=== PATIENT | female | born 1965 | race Caucasian/White ===

== ENCOUNTER 2016-10-31 20:39 | Emergency (ER) | payer OTHER ==
[~2016-10-31] VITALS: Ht 167.6 cm; Wt 77.1 kg
[~2016-10-31 20:39] MED LIST: ANTIVERT 25 MG25 M1 PO; COMPAZINE5 MG PR; GOOD SENSE IBU200 MG PO; HYDRODIURIL 2525 MG PO; VENLAFAXINE HY150 MG PO; VENLAFAXINE HYD75 M1 PO
--- NOTE | 2016-10-31 22:07 | ED GI/GU/ABDOMINAL COMPLAINT ---
History of Present Illness General Chief Complaint: Nausea, Vomiting, Diarrhea Stated Complaint: +NVD Source: patient Exam Limitations: no limitations Allergies Coded Allergies: sumatriptan (From Imitrex) (Severe, ANAPHYLAXIS 10/31/16) Sulfa (Sulfonamide Antibiotics) (Intermediate, RASH 10/31/16) vancomycin (UNKNOWN 10/31/16) erythromycin base (Severe, SEVER STOMACH PAIN 10/31/16) Reconcile Medications Hydrochlorothiazide (Hydrodiuril 25 MG Tab) 25 MG TAB 1 TAB PO BID MEINIERS ( Reported) Ibuprofen 200 MG TAB 600 MG PO PRN PAIN (Reported) Meclizine (Antivert) 25 MG TAB 1 TAB PO TID PRN DIZZINESS Ondansetron (Zofran Odt) 4 MG TAB.RAPDIS 1 TAB SL TID PRN NAUSEA Prochlorperazine (Compazine) 5 MG SUP 1 TAB [place] Q6 PRN NAUSEA VENLAFAXINE HCL (Venlafaxine HCl ER) 150 MG CER 1 CAP PO DAILY MENTAL HEALTH (Reported) VENLAFAXINE HCL (Venlafaxine HCl ER) 75 MG CER 1 CAP PO DAILY MENTAL HEALTH ( Reported) Triage Note: RECEIVED 50 YO FEMALE C/O NAUSEA, VOMITING AND DIARRHEA, STARTED YESTERDAY AFTERNOON. PT ALSO HAS BILAT EAR PAIN. PT WEAK, LIGHTHEADED. PT STATES SHE FAINTED X 2 TODAY. Triage Nurses Notes Reviewed? yes ? N Is pt currently ? No HPI: This patient is a 50-year-old female with a past medical history including Mni re's disease who presented to the emergency department today for evaluation of nausea, vomiting, and diarrhea. She reported that her symptoms began over the weekend with bilateral ear pain which she reported she gets normally due to Mni reported that the symptoms resolved and on Saturday she started having nausea and vomiting. The patient was unable to quantify the amount of time she has vomited over the last 2 days. She is also unable to quantify how many times she has had diarrhea over the last 2 days. She denied any blood in the stool or blood in the vomitus. She denied any abdominal pain. She reported that she has been feeling chills with body aches. She denied any chest pain, but reported that since she has been here in the emergency department she has developed some, "chest discomforts," and shaking. The patient denied any urinary burning, urgency, frequency, blood in the urine, constipation, difficulty breathing, or any numbness or tingling in her extremities. No jaw pain or arm pain. (LUIS ALBERTO REY PA-C) Vital Signs & Intake/Output Vital Signs & Intake/Output ED Intake and Output 11/01 0000 10/31 1200 Intake Total Output Total Balance Patient 170 lb Weight Past History Travel History Traveled to [place] past 21 day No Medical History Any Pertinent Medical History? see below for history EENT: benign positional vertigo, meniere's Surgical History Surgical History: LAPAROSCOPY, GANGLION CYST Psychosocial History What is your primary language Micronesian Tobacco Use: Never used Family History Hx Contributory? No (LUIS ALBERTO REY PA-C) Review of Systems Review of Systems Constitutional: Reports: see HPI. EENTM: Reports: no symptoms. Respiratory: Reports: no symptoms. Cardiovascular: Reports: see HPI. GI: Reports: see HPI. Genitourinary: Reports: no symptoms. Musculoskeletal: Reports: no symptoms. Skin: Reports: no symptoms. Neurological/Psychological: Reports: see HPI. All Other Systems: Reviewed and Negative (LUIS ALBERTO REY PA-C) Physical Exam Physical Exam Gastrointestinal: normal bowel sounds, soft, non-tender, no organomegaly, NO REBOUND OR GUARDING. NONDISTENDED Comments: Well-developed well-nourished person in mild distress HEENT: Normal EENT exam, head normocephalic, moist mucous membranes Pupils equally round and reactive to light. Neck: Supple, no lymphadenopathy Back: Normal inspection Cardiovascular: Regular rate and rhythm with no murmurs, rubs, or gallops. No carotid bruits Respiratory: No respiratory distress. Breath sounds clear to auscultation bilaterally with no wheezes, rales, or rhonchi Extremity: Normal and equal pulses Neuro: Alert oriented x3, cranial nerves II through XII grossly intact. Skin: No appreciable rash on exposed skin, skin is warm and diaphoretic Psych: Mood and affect is normal Core Measures ACS in differential dx? No Severe Sepsis Present: No Septic Shock Present: No (LUIS ALBERTO REY PA-C) Progress Differential Diagnosis: AAA, AMI, appendicitis, biliary colic, bowel obstruction , colon cancer, cholecystitis, diverticulitis, ectopic , endometritis, gastritis, hepatitis, ischemic bowel, inflamm bowel dis, intrauterine , kidney stone, ovarian cyst, ovarian torsion, pancreatitis, PID/cervicitis, PUD/ GERD, threatened AB, UTI/pyelo, INFLUENZA Diagnostic Imaging: Viewed by Me: Radiology Read. Discussed w/RAD: Radiology Read. CXR Impression: PATIENT: GEORGIE BENSON PRESENT AGE: 50 PATIENT ACCOUNT NO: [id number] : 67 LOCATION: [facility] ORDERING PHYSICIAN: LUIS ALBERTO REY PA-C SERVICE DATE: 10/31/16 EXAM TYPE: RAD - XRY-CHEST XRAY, PA AND LATERAL EXAMINATION: XR CHEST CLINICAL INFORMATION: Chest discomfort. Fever. Concern for cardiomegaly. COMPARISON: None. TECHNIQUE: PA and lateral views of the chest were obtained. FINDINGS: No significant abnormality is noted involving the heart, lungs, mediastinum, bony thorax, or soft tissues. Heart size is normal. IMPRESSION: Unremarkable examination. Normal heart size. DICTATED BY: ISAIAS DON MD DATE/TIME DICTATED:10/31/162319 MEDICAL EDUCATOR :ROMA DATE/TIME TRANSCRIBED:10/31/162319 CONFIDENTIAL, DO NOT COPY WITHOUT APPROPRIATE AUTHORIZATION. <Electronically signed in Other Vendor System> SIGNED BY: ISAIAS DON MD 10/31/162326 Initial ED EKG: normal axis, normal intervals, normal p-waves, normal QRS complex, normal sinus rhythm, no ST T wave changes, 65 BPM Comments: 10/31/2016 11:41:16 PM: I was at the patient's bedside for reevaluation. She reported that she is feeling better than before. However, her nausea is still persistent. Blood pressure is coming down. Resolution of chest discomfort. Troponin I elevated. EKG within normal limits. Influenza rapid swab was negative. No increased white blood cell count. Likely viral etiology. This patient will be given 1 more liter of IV fluids and discharged pending stable vital signs for outpatient management of her symptoms. (KRISSY LANCASTER,LUIS ALBERTO) Plan of Care: Laboratory Tests 11/01/16 0028: Lactic Acid Cancelled Departure Departure Disposition: HOME OR SELF CARE Condition: Stable Clinical Impression Primary Impression: Viral syndrome Referrals: ANN MARIE SANTIAGO,RHONDA Corral (PCP/Family) Additional Instructions: Takes Zofran as prescribed for nausea. Take [id number] Tylenol for fever and pain. Please rest and be sure to stay hydrated. Return for any worsening symptoms or concerns. Departure Forms: Customer Survey General Discharge Information Prescriptions: Current Visit Scripts Ondansetron (Zofran Odt) 1 TAB SL TID PRN NAUSEA #10 TAB (LUIS ALBERTO REY PA-C) PA/REGIONAL PLANNER Co-Sign Statement Statement: ED Attending supervision documentation- [] I saw and evaluated the patient. I have also reviewed all the pertinent lab results and diagnostic results. I agree with the findings and the plan of care as documented in the PA's/REGIONAL PLANNER's documentation. [X] I have reviewed the ED Record and agree with the PA's/REGIONAL PLANNER's documentation. [] Additions or exceptions (if any) to the PAs/REGIONAL PLANNER's note and plan are summarized below: [] (TIAN SANTIAGO,AMOR Bates) lateral views of the chest were obtained. FINDINGS: No significant abnormality is noted involving the heart, lungs, mediastinum, bony thorax, or soft tissues. Heart size is normal. IMPRESSION: Unremarkable examination. Normal heart size. DICTATED BY: ISAIAS DON MD DATE/TIME DICTATED:10/31/162319 MEDICAL EDUCATOR :ROMA DATE/TIME TRANSCRIBED:10/31/162319 CONFIDENTIAL, DO NOT COPY WITHOUT APPROPRIATE AUTHORIZATION. <Electronically signed in Other Vendor System> SIGNED BY: ISAIAS DON MD 10/31/162326 Initial ED EKG: normal axis, normal intervals, normal p-waves, normal QRS complex, normal sinus rhythm, no ST T wave changes, 65 BPM Comments: 10/31/2016 11:41:16 PM: I was at the patient's bedside for reevaluation. She reported that she is feeling better than before. However, her nausea is still persistent. Blood pressure is coming down. Resolution of chest discomfort. Troponin I elevated. EKG within normal limits. Influenza rapid swab was negative. No increased white blood cell count. Likely viral etiology. This patient will be given 1 more liter of IV fluids and discharged pending stable vital signs for outpatient management of her symptoms. (LUIS ALBERTO REY PA-C) Departure Departure Disposition: HOME OR SELF CARE Condition: Stable Clinical Impression Primary Impression: Viral syndrome Referrals: ANN MARIE SANTIAGO,RHONDA Corral (PCP/Family) Additional Instructions: Takes Zofran as prescribed for nausea. Take [id number] Tylenol for fever and pain. Please rest and be sure to stay hydrated. Return for any worsening symptoms or concerns. Departure Forms: Customer Survey General Discharge Information Prescriptions: Current Visit Scripts Ondansetron (Zofran Odt) 1 TAB SL TID PRN NAUSEA #10 TAB (KRISSY LANCASTER,LUIS ALBERTO) PA/REGIONAL PLANNER Co-Sign Statement Statement: ED Attending supervision documentation- [] I saw and evaluated the patient. I have also reviewed all the pertinent lab results and diagnostic results. I agree with the findings and the plan of care as documented in the PA's/REGIONAL PLANNER's documentation. [X] I have reviewed the ED Record and agree with the PA's/REGIONAL PLANNER's documentation. [] Additions or exceptions (if any) to the PAs/REGIONAL PLANNER's note and plan are summarized below: [] (TIAN SANTIAGO,AOMR Bates)
[2016-10-31 22:10] LABS: ABSOLUTE BASOPHIL COUNT 0.1 /CUMM (0.0-0.2); ABSOLUTE EOSINOPHIL COUNT 0.2 /CUMM (0.0-0.7); ABSOLUTE GRANULOCYTE CT 5.4 /CUMM (1.4-6.5); ABSOLUTE LYMPH COUNT 1.8 /CUMM (1.2-3.4); ABSOLUTE MONOCYTE COUNT 0.6 /CUMM (0.10-0.60); BASOPHIL % 0.8 % (0.0-2.0); EOSINOPHIL % 1.9 % (0-5); GRANULOCYTE % 67.3 % (42.2-75.2); HEMATOCRIT 42.4 % (37-47); MEAN CORPUSCULAR HGB 29.6 PG (27.0-31.0); MEAN CORPUSCULAR HGB CONC 34.1 G/DL (33.0-37.0); MEAN CORPUSCULAR VOLUME 86.8 FL (81.0-99.0); PLATELET COUNT 232 /CUMM (130-400); RBC DISTRIBUTION WIDTH 13.8 % (11.5-14.5); RED BLOOD CELL CT 4.89 /CUMM (4.20-5.40); WHITE BLOOD CELL COUNT 8.1 /CUMM (4.8-10.8)
--- NOTE | 2016-10-31 23:27 | RADIOLOGY REPORT ---
EXAMINATION: XR CHEST CLINICAL INFORMATION: Chest discomfort. Fever. Concern for cardiomegaly. COMPARISON: None. TECHNIQUE: PA and lateral views of the chest were obtained. FINDINGS: No significant abnormality is noted involving the heart, lungs, mediastinum, bony thorax, or soft tissues. Heart size is normal. IMPRESSION: Unremarkable examination. Normal heart size.
[2016-10-31 23:40] VITALS: BP 152/80
[2016-11-01] MEDS ORDERED: ZOFRAN ODT4 M1 SL (00:11)
== END 2016-11-01 00:37 ==
LOC: ERH 20:39
PROVIDERS: Physician Assistant
DX: B34.9 Viral infection, unspecified (principal)
CPT/HCPCS: 81001; 81025; 87804; 87804-59; 93005; 93010; 96361; 96374; 96375; J2765

== ENCOUNTER 2018-01-22 17:06 | Emergency (ER) | payer OTHER ==
[~2018-01-22] VITALS: Ht 170.2 cm; Wt 89.4 kg
[~2018-01-22 17:06] MED LIST changes: +ZOFRAN ODT4 M1 SL
--- NOTE | 2018-01-22 17:36 | ED UPPER/LOWER EXTREMITY COMPL ---
History of Present Illness General Chief Complaint: Lower Extremity Problems Stated Complaint: SIB R/O DVT Source: patient Exam Limitations: no limitations Vital Signs & Intake/Output Vital Signs & Intake/Output Vital Signs Date Time Temp Pulse Resp B/P B/P Pulse O2 O2 Flow FiO2 Mean Ox Delivery Rate 01/22 1738 96.9 75 18 159/105 96 Room Air Allergies Coded Allergies: sumatriptan (From Imitrex) (Severe, ANAPHYLAXIS 10/31/16) Sulfa (Sulfonamide Antibiotics) (Intermediate, RASH 10/31/16) vancomycin (UNKNOWN 10/31/16) erythromycin base (Severe, SEVER STOMACH PAIN 10/31/16) Reconcile Medications Hydrochlorothiazide (Hydrodiuril 25 MG Tab) 25 MG TAB 1 TAB PO BID MEINIERS ( Reported) Ibuprofen 200 MG TAB 600 MG PO PRN PAIN (Reported) Meclizine (Antivert) 25 MG TAB 1 TAB PO TID PRN DIZZINESS Ondansetron (Zofran Odt) 4 MG TAB.RAPDIS 1 TAB SL TID PRN NAUSEA Prochlorperazine (Compazine) 5 MG SUP 1 TAB [place] Q6 PRN NAUSEA VENLAFAXINE HCL (Venlafaxine HCl ER) 150 MG CER 1 CAP PO DAILY MENTAL HEALTH (Reported) VENLAFAXINE HCL (Venlafaxine HCl ER) 75 MG CER 1 CAP PO DAILY MENTAL HEALTH ( Reported) Triage Nurses Notes Reviewed? yes Onset: Gradual Duration: week(s): (4) Timing: no prior history Severity: moderate Severity Numbers: 7 Pain/Injury Location: Left: Leg. Method of Injury: unknown Modifying Factors: Worsens With: immobilization, movement. HPI: Patient is a 52-year-old female presenting to the emergency department with chief complaint of left calf pain has been going on constantly for the past 1 month. Pain is worse with walking. Denies any known injury. She does report some numbness and tingling intermittently in her toes today. Denies any shortness of breath chest pain palpitations. Has not taken anything over-the- counter to help with symptoms. Denies any noticeable swelling. Denies any bruising or redness. Denies any rashes. No history of blood clot. She does report that it started after she was sedentary for a few days after getting the flu. Does not take any hormone supplements. (Rosibel Forrest) Past History Travel History Traveled to [place] past 21 day No Medical History Any Pertinent Medical History? see below for history EENT: benign positional vertigo, meniere's Surgical History Surgical History: LAPAROSCOPY, GANGLION CYST Psychosocial History What is your primary language Nigerien Family History Hx Contributory? No (Rosibel Forrest) Review of Systems Review of Systems Constitutional: Reports: no symptoms. Comments Review of systems: See HPI, All other systems negative. Constitutional, no chills fever or weight loss HEENT: No visual changes no sore throat no congestion Cardiovascular: No chest pain ,palpitation , orthopnea or ankle swelling Skin, no jaundice no rashes Respiratory: No dyspnea cough sputum or hemoptysis GI: No nausea no vomiting Muscle skeletal: no back pain, no neck pain, Neurologic: no confusion no headaches Psych: No stress anxiety or depression,. Heme/endocrine: No bruising no bleeding no polyuria or polydipsia Immunology: No splenectomy or history of AIDS (Rosibel Forrest) Physical Exam Physical Exam General Appearance: well developed/nourished, no apparent distress, alert, awake , comfortable Comments: Well-developed well-nourished person in no acute distress HEENT: N atraumatic, normocephalic Neck: Normal inspection Back: Nontender Cardiovascular: R pedal pulses are 2+ bilaterally. Respiratory:No respiratory distress Extremity: No edema, mild calf tenderness to palpation on the left side only, mild tenderness to palpation in the left popliteal area., normal and equal pulses. No tenderness to palpation on the right calf. Full range of motion of lower extremities bilaterally without difficulty or pain. Neuro: Alert oriented x3, motor sensory normal Skin: No appreciable rash on exposed skin, skin is warm and dry. Psych: Mood and affect is normal, memory and judgment is normal. (Rosibel Forrest) Progress Differential Diagnosis: contusion, dislocation, DVT, sprain, tendon injury Plan of Care: Orders Procedure Date/time Status US-UNILATERAL VENOUS DOPPLER 01/22 1735 Active Diagnostic Imaging: Viewed by Me: Ultrasound. Discussed w/RAD: Ultrasound. Radiology Impression: PATIENT: GEORGIE BENSON PRESENT AGE: 52 PATIENT ACCOUNT NO: [id number] : 67 LOCATION: [facility] ORDERING PHYSICIAN: Rosibel SCHILLING SERVICE DATE: 01/22/18 EXAM TYPE: US - US-UNILATERAL VENOUS DOPPLER EXAMINATION: US TRIPLEX LOWER EXTREMITY, LEFT CLINICAL INFORMATION: Left lower extremity pain and edema. COMPARISON: None TECHNIQUE: Color-flow triplex imaging with spectral analysis and compression Doppler were performed on the lower extremity. FINDINGS: Respiratory variation, normal compression and augmented flow are noted throughout the lower extremity. The visualized common femoral vein, superficial femoral vein, profunda femoral vein, popliteal vein and midcalf peroneal and posterior tibial venous segments show no evidence of deep venous thrombosis. There is no Ramírez's cyst. IMPRESSION : Normal triplex scan without evidence of deep venous thrombosis involving the lower extremity. DICTATED BY: Jeovanny Jackson MD DATE/TIME DICTATED:01/22/181799 SET UP MECHANIC COIL WINDING MACHINES:ROMA DATE/TIME TRANSCRIBED:01/22/181799 CONFIDENTIAL, DO NOT COPY WITHOUT APPROPRIATE AUTHORIZATION. <Electronically signed in Other Vendor System> SIGNED BY: Jeovanny Jackson MD 01/22/181808 (Rosibel Forrest) Departure Departure Time of Disposition: 1820 Disposition: HOME OR SELF CARE Condition: Stable Clinical Impression Primary Impression: Strain of calf muscle Qualifiers: Encounter type: initial encounter Laterality: left Qualified Code: S86.812A - Strain of other muscle(s) and tendon(s) at lower leg level, left leg, initial encounter Referrals: Vikas Gordon MD (PCP/Family) Additional Instructions: Follow-up with your primary care physician, call to make an appointment for the next 5-7 days. Rest and elevate affected calf. Take [id number]-[id number] Motrin or Tylenol as directed. Increase fluids as this will help with hydration status. Departure Forms: Customer Survey General Discharge Information (Rosibel Forrest) PA/SPECIAL DEPUTY SHERIFF Co-Sign Statement Statement: ED Attending supervision documentation- [] I saw and evaluated the patient. I have also reviewed all the pertinent lab results and diagnostic results. I agree with the findings and the plan of care as documented in the PA's/SPECIAL DEPUTY SHERIFF's documentation. [x] I have reviewed the ED Record and agree with the PA's/SPECIAL DEPUTY SHERIFF's documentation. [] Additions or exceptions (if any) to the PAs/SPECIAL DEPUTY SHERIFF's note and plan are summarized below: [] (David Mauricio DO)
[2018-01-22 17:38] VITALS: BP 159/105
--- NOTE | 2018-01-22 18:09 | ULTRASOUND REPORT ---
EXAMINATION: US TRIPLEX LOWER EXTREMITY, LEFT CLINICAL INFORMATION: Left lower extremity pain and edema. COMPARISON: None TECHNIQUE: Color-flow triplex imaging with spectral analysis and compression Doppler were performed on the lower extremity. FINDINGS: Respiratory variation, normal compression and augmented flow are noted throughout the lower extremity. The visualized common femoral vein, superficial femoral vein, profunda femoral vein, popliteal vein and midcalf peroneal and posterior tibial venous segments show no evidence of deep venous thrombosis. There is no Ramírez's cyst. IMPRESSION: Normal triplex scan without evidence of deep venous thrombosis involving the lower extremity.
== END 2018-01-22 18:46 ==
LOC: ERH 17:06
DX: S86.912A Strain of unspecified muscle(s) and tendon(s) at lower leg level, left leg, initial encounter (principal); X58.XXXA Exposure to other specified factors, initial encounter; Y92.9 Unspecified place or not applicable; Y93.9 Activity, unspecified